=== PATIENT | male | born 1990 | race Caucasian/White ===

== ENCOUNTER 2019-05-06 15:38 | Inpatient (IN) | payer OTHER ==
[~2019-05-06] VITALS: Ht 165.1 cm; Wt 76.1 kg
[2019-05-06 16:52] LABS: HEMATOCRIT 44.4 % (42.0-52.0); HEMOGLOBIN 15.4 g/dl (13.5-17.5); MEAN CORPUSCULAR HEMOGLOBIN 30.4 pg (27.0-33.0); MEAN CORPUSCULAR HGB CONC 34.7 g/dl (32.0-36.5); MEAN CORPUSCULAR VOLUME 87.7 fl (80.0-96.0); PLATELET COUNT, AUTOMATED 241 10^3/uL (150-450); RED BLOOD COUNT 5.06 10^6/uL (4.30-6.10); WHITE BLOOD COUNT 6.6 10^3/uL (4.0-10.0)
[2019-05-06 17:18] LABS: AMPHETAMINES LEVEL URINE NEGATIVE (NEGATIVE); BARBITURATES URINE NEGATIVE (NEGATIVE); BENZODIAZEPINES URINE NEGATIVE (NEGATIVE); CANNABINOIDS URINE NEGATIVE (NEGATIVE); COCAINE METABOLITE URINE NEGATIVE (NEGATIVE); METHADONE URINE NEGATIVE (NEGATIVE); OPIATES URINE NEGATIVE (NEGATIVE); PHENCYCLIDINE URINE NEGATIVE (NEGATIVE)
[2019-05-06 17:28] LABS: ACETAMINOPHEN LEVEL < 2.0 UG/ML (10.0-30.0); ALBUMIN 4.5 GM/DL (3.2-5.2); ALT/SGPT 33 U/L (12-78); BILIRUBIN,DIRECT 0.1 MG/DL (0.0-0.2); BILIRUBIN,TOTAL 0.4 MG/DL (0.2-1.0); BLOOD UREA NITROGEN 18 MG/DL (7-18); CALCIUM LEVEL 8.9 MG/DL (8.5-10.1); CARBON DIOXIDE LEVEL 29 MEQ/L (21-32); CHLORIDE LEVEL 104 MEQ/L (98-107); CREATININE FOR GFR 1.02 MG/DL (0.70-1.30); ETHYL ALCOHOL (ETHANOL) < 0.003 % (0.000-0.010); GLOMERULAR FILTRATION RATE > 60.0 (>60); GLUCOSE, FASTING 91 MG/DL (70-100); POTASSIUM SERUM 4.1 MEQ/L (3.5-5.1); SALICYLATE LEVEL < 1.7 MG/DL (5.0-30.0); SODIUM LEVEL 139 MEQ/L (136-145); TOTAL PROTEIN 7.6 GM/DL (6.4-8.2)
[2019-05-06] MEDS ORDERED: ACETAMINOPHEN TAB 650MG DOSE (2X325MG) PO PRN (20:30)
[2019-05-06] MEDS ORDERED: MOM 30ML SUSPENSION UDC PO PRN (20:30)
[2019-05-06] MEDS ORDERED: MAALOX 30 ML SUSP *UDC PO PRN (20:30)
[2019-05-06] MEDS ORDERED: traZODone 50 MG TAB PO PRN (20:30)
[2019-05-06 22:05] VITALS: BP 134/84
[2019-05-07 06:16] VITALS: BP 119/56
[2019-05-07] MEDS: NICOTINE 21MG/24HR 1 EA TRANSDERMAL TD SCH (09:00)
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
--- NOTE | 2019-05-07 13:11 | HPEPDOC ---
General Date of Admission May 06, 2019 at 20:25 Date of Service: May 07, 2019 Attending Physician: EVA CASTRO MD Chief Complaint The patient is a 28-year-old male admitted with a reason for visit of Unpecified Depressive D/O. Source: Patient Exam Limitations: No limitations Timing/Duration: Other (N/A) Severity: Other (N/A) Associated Symptoms: Other History of Present Illness This is 28 years old white male with past medical history of depression, was admitted with the diagnoses of suicidal ideations. We were called in for medical evaluation, patient offers no medical complaints at the present time. Home Medications No Active Prescriptions or Reported Meds Allergies Coded Allergies: No Known Allergies (Unverified , 05/06/19) Past Medical History Medical History Neck pain Neuroma on left elbow Surgical History None Family History Significant Family History: No pertinent family hx Social History * Smoker: Denies Alcohol: Denies Drugs: denies A-FIB/CHADSVASC A-FIB History Current/History of A-Fib/PAF?: No Review of Systems Constitutional: Denies: Chills, Fever, Malaise, Night Sweats, Weakness, Fatigue, Weight Loss, Lethargy, Other Eyes: Denies: Pain, Vision change, Conjunctivae inflammation, Eyelid inflammation, Redness, Other ENT: Denies: Head Aches, Ear Pain, Dysphagia, Sinus Congestion, Post Nasal Drip, Sore Throat, Epistaxis, Other Symptoms Skin: Denies: Rash, Lesions, Jaundice, Bruising, Itching, Dry, Breakdown, Nail Changes, Other Pulmonary: Denies: Dyspnea, Cough, Pleuritic Chest Pain, Other Symptoms Cardiovascular: Denies: Chest Pain, Palpitations, Orthopnea, Paroxysmal Noc. Dyspnea, Edema, Lt Headedness, Other Symptoms Gastrointestinal: Denies: Nausea, Vomiting, Abdominal Pain, Diarrhea, Constipation, Melena, Hematochezia, Other Symptoms Genitourinary: Denies: Dysuria, Frequency, Incontinence, Hematuria, Retention, Other Symptoms Hematologic: Denies: Bruising, Bleeding Excessively, Petecchia, Purpura, Enlarged Lymph Nodes, Other Hematologic Endocrine: Denies: Polydipsia, Polyphagia, Polyuria, Heat Intolerance, Cold Intolerance, Other Endocrine Sx Musculoskeletal: Denies: Neck Pain, Back Pain, Shoulder Pain, Arm Pain, Hand Pain, Leg Pain, Foot Pain, Joint Pain, Muscle Pain, Spasms, Other Symptoms Neurological: Denies: Weakness, Numbness, Incoordination, Change in speech, Confusion, Seizures, Other Symptoms Psych: Denies: Mood Normal, Anxiety, Depression, Memory Issues, Thoughts of Self Harm, Anger, Thoughts of Harming Other, Other Psych Physical Examination General Exam: Positive: Alert, Cooperative Eye Exam: Positive: PERRLA, Conjunctiva & lids normal ENT Exam: Positive: Atraumatic Neck Exam: Positive: Supple Chest Exam: Positive: Clear to auscultation, Normal air movement Heart Exam: Positive: Rate Normal, Normal S1, Normal S2 Abdomen Exam: Positive: Normal bowel sounds Extremity Exam: Positive: Normal pulses Skin Exam: Positive: Nl turgor and temperature Neuro Exam: Positive: Strength at 5/5 X4 ext, Sensation Intact Psych Exam: Positive: Mental status NL, Mood NL, Oriented x 3 Vital Signs Vital Signs Date Time Temp Pulse Resp B/P (MAP) Pulse Ox O2 Delivery O2 Flow Rate FiO2 05/07/19 06:16 97.9 90 14 119/56 (77) 05/06/19 22:05 100 05/06/19 15:39 Room Air Laboratory Data Labs 24H Laboratory Tests 2 05/06/19 16:39: Urine Amphetamines Screen NEGATIVE, Urine Benzodiazepines Screen NEGATIVE, Urine Opiates Screen NEGATIVE, Urine Methadone Screen NEGATIVE, Urine Barbiturates Screen NEGATIVE, Urine Phencyclidine Screen NEGATIVE, Urine Cocaine Metabolite Screen NEGATIVE, Urine Cannabinoids Screen NEGATIVE 05/06/19 16:41: Nucleated Red Blood Cells % (auto) 0.0, Anion Gap 6L, Glomerular Filtration Rate > 60.0, Calcium Level 8.9, Aspartate Amino Transf (AST/SGOT) 19, Alanine Aminotransferase (ALT/SGPT) 33, Alkaline Phosphatase 79, Total Bilirubin 0.4, Direct Bilirubin 0.1, Total Protein 7.6, Albumin 4.5, Albumin/Globulin Ratio 1.45, Thyroid Stimulating Hormone (TSH) 1.060, Salicylates Level < 1.7L, Acetaminophen Level < 2.0L, Ethyl Alcohol Level < 0.003 CBC/BMP Laboratory Tests 05/06/19 16:41 Red Blood Count 5.06, Mean Corpuscular Volume 87.7, Mean Corpuscular Hemoglobin 30.4, Mean Corpuscular Hemoglobin Concent 34.7, Red Cell Distribution Width 11.9 Problems (1) Suicidal ideation Status: Acute Problem Text: Patient admitted to inpatient mental health unit for further care Individual and group therapies, and per psych Medications as per psychiatric attending (2) Depression Status: Acute Problem Text: As above (3) Neck pain Status: Chronic Problem Text: Patient is receiving physical therapy for his neck pain Further workup is in progress as an outpatient He is asymptomatic at the present time will not start any meds are workup as it can be done as an outpatient once his discharge Plan / VTE VTE Prophylaxis Ordered?: No VTE Exclusion Mechanical Proph: Low Risk for VTE VTE Exclusion Pharmacological: At Low Risk for VTE EVA CASTRO MD May 07, 2019 13:11
[2019-05-07 15:40] VITALS: BP 120/64
[2019-05-08 06:50] VITALS: BP 123/64
[2019-05-08] MEDS: NICOTINE 21MG/24HR 1 EA TRANSDERMAL TD SCH (09:00)
[2019-05-08] MEDS ORDERED: NICOTINE 21MG/24HR 1 EA TRANSDERMAL TD PRN (10:15)
[2019-05-08 16:01] VITALS: BP 138/86
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
[2019-05-09 06:34] VITALS: BP 122/73
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
[2019-05-09 16:02] VITALS: BP 134/64
[2019-05-10 06:18] VITALS: BP 131/79
[2019-05-10] MEDS ORDERED: NICO21PAT TD (09:19)
--- NOTE | 2019-05-10 09:28 | MHDSPDOC ---
[facility] Discharge Summary Discharge Summary DATE OF ADMISSION: May 06, 2019 at 20:25 DATE OF /DISCHARGE: 05/10/19 Discharge Magdaleno Jeronimo MRN: N/A Date of : N/A Date of Service: 05/10/2019 Diagnoses PTSD, chronic. 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 He reports increasing emotional numbness, negative cognitions about the future, avoidance behaviors and difficulty regulating his mood. He reports that he has become increasingly more depressed, lost interest and notes that his normal coping habits of working out are not able to be done due to an injury to his right arm. He is noted to have more risky behaviors with more pain engaging behaviors as he states it makes him feel "better." He reports having treatment in the past with Paxil, but noted that it made him feel more suicidal and is admittedly against medications at this time. He does report he does want therapy and that he is beginning therapy once a week with EMDR, but finds that talking about his experiences and processing his emotions work better. Consultants Involved Hospitalist/PCP screening Treatment and Progress On The Unit The patient was admitted to the unit, subsequently medication was offered, however, after an exploration of the risks, benefits and alternatives to treatments, the patient elected to have psychotherapy and was very interested in the [facility] for treatment of hie PTSD. He engaged well on the unit. He attended groups regularly and was noted to be very helpful with other patients. After a weekend of observation, the patient had been denying suicidality for nearly the entirety of his admission. On the day of discharge, the patient had requested to go and did not meet involuntary criteria for further extension of his admission at that time in my clinical judgment as he had been denying suicidal thoughts, had been participating well on the unit and had not been demonstrating signs or symptoms of being gravely impaired by his mental illness and had declined further voluntary admission and thus was discharged in good reese. Discharge Assessment A 28-year-old man with a history of PTSD from childhood trauma presents after reporting suicidal thoughts contingent upon his . He presents wanting help in order to improve his symptoms that are classic PTSD. However, he has had a poor response to medication in the past that has jaded him against further medication trials after extensive discussions of the risks, benefits and alternatives to treatments including lack of pharmacological treatment, the patient selects to have intensive outpatient psychotherapy as he does not wish to accept the risks of another medication trial at this time. Mental Status Examination General: Well dressed with good hygiene Speech: Spontaneous and fluid Thought processes: Linear and logical MSK: Smooth and coordinated gait, no signs of tremors or involuntary orofacial movements Thought content: Future orientated Abstract reasoning, and computation: Intact Description of associations: Intact Description of abnormal or psychotic thoughts: Denies any suicidal or homicidal ideation. Denies any auditory or visual hallucinations. Does not appear to be r esponding to internal stimuli. Does not appear to be endorsing any bizarre or paranoid ideation. Judgment: fair Insight: fair Orientation: Alert and orientated 3 Cognition: Grossly normal Recent and remote memory: Intact Attention span and concentration: Intact Fund of knowledge: Adequate Mood: "okay" Affect: Euthymic with a full range Follow Up The social work team worked during the predischarge meeting in order to evaluate for further issues of lethality address them fully before discharge. They worked on safety planning with the patient's family members in order to ensure that the patient will have a safe and effective discharge. Time Spent The amount of time spent in the coordination of care for this patient was approximately 20 minutes. Friday Vital Signs/I&Os Vital Signs Date Time Temp Pulse Resp B/P (MAP) Pulse Ox O2 Delivery O2 Flow Rate FiO2 05/10/19 06:18 98.1 68 16 131/79 (96) 05/06/19 22:05 100 05/06/19 15:39 Room Air Medications Scheduled PRN Nicotine (Nicotine Patch) 21 Mg Patch.td24, 1 PATCH TD DAILYPRN PRN for SMOKING CESSATION for 30 Days, #30 Allergies Coded Allergies: No Known Allergies (Unverified , 05/06/19) MARBIN AGUILLON DO May 10, 2019 09:28
== END 2019-05-10 12:20 | disposition home or self-care (01) | DRG 882 ==
LOC: M ED 15:38 → M ED INP 20:25 → M PSY 21:35
PROVIDERS: ADMIT Psychiatry & Neurology Addiction Medicine; ATTEND Psychiatry & Neurology Addiction Medicine
DX: F43.12 Post-traumatic stress disorder, chronic (principal); R45.851 Suicidal ideations; F33.9 Major depressive disorder, recurrent, unspecified; Z63.0 Problems in relationship with spouse or partner; Z62.819 Personal history of unspecified abuse in childhood; M54.2 Cervicalgia